=== PATIENT | female | born 1945 ===

== ENCOUNTER 2019-02-21 10:56 | Inpatient (IN) | payer MEDICARE, OTHER | END 2019-02-25 23:20 | DRG 89 | LOC: C.ER 10:56 → C.5E 12:04 → C.6T 02-23 21:48 → C.9E 13:12 → C.6T 14:14 | DX: S06.0X1A Concussion with loss of consciousness of 30 minutes or less, initial encounter (principal); I13.0 Hypertensive heart and chronic kidney disease with heart failure and stage 1 through stage 4 chronic kidney disease, or unspecified chronic kidney disease; I50.9 Heart failure, unspecified; F02.80 Dementia in other diseases classified elsewhere, unspecified severity, without behavioral disturbance, psychotic disturbance, mood disturbance, and anxiety; G30.9 Alzheimer's disease, unspecified; E78.5 Hyperlipidemia, unspecified; N18.9 Chronic kidney disease, unspecified; E11.22 Type 2 diabetes mellitus with diabetic chronic kidney disease; I69.220 Aphasia following other nontraumatic intracranial hemorrhage; K21.9 Gastro-esophageal reflux disease without esophagitis; F07.81 Postconcussional syndrome; W19.XXXA Unspecified fall, initial encounter; Y93.9 Activity, unspecified; Y92.129 Unspecified place in nursing home as the place of occurrence of the external cause ==